=== PATIENT | female | born 1985 | race Caucasian/White ===

== ENCOUNTER 2024-12-04 08:51 | Day surgery (SDC) | payer MEDICAID ==
[~2024-12-04] VITALS: Ht 175.3 cm; Wt 164.1 kg
[~2024-12-04 08:51] MED LIST: HYDR50CA7 PO; PARO-38 PO; QUET100T PO; SODIUM CHLORIDE 0.9% 1,000 ML ONE
[2024-12-04] MEDS: SODIUM CHLORIDE 0.9% 1,000 ML IV ONE (10:29)
== END 2024-12-04 12:55 | disposition home or self-care (01) ==
LOC: SURGERY 08:51
PROVIDERS: ATTEND Internal Medicine
DX: K62.5 Hemorrhage of anus and rectum (principal); R12 Heartburn; K29.70 Gastritis, unspecified, without bleeding; K31.89 Other diseases of stomach and duodenum; Z72.89 Other problems related to lifestyle; Z98.890 Other specified postprocedural states; E03.9 Hypothyroidism, unspecified; F41.9 Anxiety disorder, unspecified
CPT/HCPCS: 43239; 45378; 84703; 88305; J7030